=== PATIENT | male | born 1990 | race Caucasian/White ===

== ENCOUNTER 2021-08-19 12:37 | Emergency (ER) | payer OTHER ==
[2021-08-19] MEDS ORDERED: ONDANSETRON *ODT* 4 MG TABLET SL ONE (12:40)
[2021-08-19 12:45] VITALS: BP 126/82; PULSE 90; TEMP 98.8; BMI 31.9
[2021-08-19] MEDS ORDERED: ONDANSETRON *ODT* 4 MG TABLET ONE (12:47)
[2021-08-20 16:09] LABS: SARS-CoV-2 NAA Not Detected (Not Detected)
== END 2021-08-19 13:39 | disposition home or self-care (01) ==
LOC: FER 12:37
DX: R19.7 Diarrhea, unspecified (principal)
CPT/HCPCS: 99283-25; C9803; U0003; U0005